=== PATIENT | male | born 1995 | race Caucasian/White ===

== ENCOUNTER 2016-12-12 19:08 | Emergency (ER) | payer SELFPAY ==
[2016-12-12 19:16] VITALS: BP 154/112; PULSE 92; TEMP 98.2; BMI 33.5
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
== END 2016-12-12 19:37 | disposition home or self-care (01) ==
LOC: FER 19:08
DX: S89.92XA Unspecified injury of left lower leg, initial encounter (principal); V09.9XXA Pedestrian injured in unspecified transport accident, initial encounter; Y93.89 Activity, other specified; Y92.9 Unspecified place or not applicable
CPT/HCPCS: 99281-25

== ENCOUNTER 2017-02-12 11:10 | Emergency (ER) | payer SELFPAY ==
[2017-02-12 11:32] VITALS: BP 151/88; PULSE 118; TEMP 98.8; BMI 32.5
[2017-02-12] MEDS ORDERED: ALBUTEROL SO4 2.5/IPRATROPIUM 0.5 INH SOL 3 ML VIAL.NEB. NEB ONE ×2 (11:50→11:56)
[2017-02-12] MEDS ORDERED: TOBRAMYCIN 0.3% OPHTH SOLN 5 ML BOTTLE OD ONE (11:50)
[2017-02-12] MEDS ORDERED: TOBRAMYCIN 0.3% OPHTH SOLN 5 ML BOTTLE ONE (11:56)
--- NOTE | 2017-02-12 12:13 | PDOC ---
History of Present Illness - General Chief Complaint: Cold Symptoms Stated Complaint: FATIGUE Time Seen by Provider: 02/12/17 11:45 History Source: Patient Exam Limitations: No Limitations - History of Present Illness Initial Comments: 02/12/17 patient came to emergency department for evaluation of progressive cough, nonproductive. 2 days. Runny nose of clear drainage, and general malaise. 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 Also states woke up this morning with redness to his right eye with some yellowish drainage which now has moved to his left eye. No visual changes, trauma. Used [id number] medications including NyQuil with some resolved. Severity: reports: mild Associated Symptoms: reports: cough, fever/chills Past History - Travel Traveled outside of the country in the last 30 days: No Close contact w/someone who was outside of country & ill: No - Past Medical History Allergies/Adverse Reactions: Allergies Allergy/AdvReac Type Severity Reaction Status Date / Time No Known Allergies Allergy Verified 02/12/17 11:32 Home Medications: Ambulatory Orders Tobramycin 0.3% Ophth Soln [Tobrex Ophthalmic Solution -] 2 drop OS QID #1 drops 02/12/17 HTN: Yes - Suicide/Smoking/Psychosocial Hx Smoking History: Never smoked Have you smoked in the past 12 months: No Information on smoking cessation initiated: No Hx Alcohol Use: Yes Drug/Substance Use Hx: No Substance Use Type: Alcohol Review of Systems - Review of Systems Able to Perform ROS?: Yes Is the patient limited Ivorian proficient: Yes Constitutional: Yes: Symptoms Reported, See HPI, Loss of Appetite, Malaise. No : Fever HEENTM: Yes: Symptoms Reported Respiratory: Yes: Symptoms reported, See HPI, Cough. No: Wheezing Musculoskeletal: Yes: Symptoms Reported All Other Systems: Reviewed and Negative *Physical Exam - Vital Signs Last Vital Signs Temp Pulse Resp BP Pulse Ox 98.8 F 118 H 20 151/88 99 02/12/17 11:25 02/12/17 11:25 02/12/17 11:25 02/12/17 11:25 02/12/17 11:25 - Physical Exam General Appearance: Yes: Nourished, Appropriately Dressed, Apparent Distress, Mild Distress HEENT: positive: DALE, Normal ENT Inspection, TMs Normal, Pharynx Normal, Muffled/Hoarse voice, Nasal Congestion, Rhinorrhea Neck: positive: Supple. negative: Lymphadenopathy (R), Lymphadenopathy (L) Respiratory/Chest: positive: Lungs Clear, Wheezing (mild tightness ) Cardiovascular: positive: Regular Rate Gastrointestinal/Abdominal: positive: Soft. negative: Tender Extremity: positive: Normal Capillary Refill, Normal Inspection Integumentary: positive: Normal Color, Dry Neurologic: positive: ophthalmic lens inspector II-XII NML intact, Fully Oriented, Alert, Normal Mood/ Affect, Normal Response, Motor Strength /5 Progress Note - Progress Note Progress Note: Conjunctivitis, will treat with tobramycin drops, and URI probable viral in nature *DC/Admit/Observation/Transfer Diagnosis at time of Disposition: URI with cough and congestion Conjunctivitis Qualifiers: Conjunctivitis type: acute Acute conjunctivitis type: unspecified Laterality: unspecified laterality Qualified Code(s): H10.30 - Unspecified acute conjunctivitis, unspecified eye - Discharge Dispostion Disposition: HOME Condition at time of disposition: Stable Admit: No - Prescriptions Prescriptions: Tobramycin 0.3% Ophth Soln [Tobrex Ophthalmic Solution -] 2 drop OS QID #1 drops - Patient Instructions Printed Discharge Instructions: DI for Common Cold Additional Instructions: Rest, drink lots of fluids: Teas, water, soups, Pedialyte Saltwater gargles Steamy showers/seem to face break up mucus Avoid contact with others until fevers and cough resolved Lots of handwashing and good hygiene Continue [id number] medications for symptomatic relief Tylenol or Motrin for fever and pain Followup with private physician in one to 2 days as needed Return to emergency department for worsened symptoms, fevers, dehydration Rest, avoid rubbing eyes Wash hands frequently as this is very contagious Wash hands, use eye drops as directed, wash hands after use Tobramycin eyedrops, 2 drops to affected eyes 4 times a day for 5 days Do not share eyedrops with other person to may become infected as this will infect them Avoid contact with others until redness and discharge is gone from eyes. Followup with ophthalmology or private physician as needed - Post Discharge Activity Forms/Work/School Notes: Back to Work
== END 2017-02-12 12:52 | disposition home or self-care (01) ==
LOC: JERFT 11:10
PROC: 3E0F7GC Introduction of Other Therapeutic Substance into Respiratory Tract, Via Natural or Artificial Opening (ICD-10-PCS; principal; 2017-02-12)
DX: J06.9 Acute upper respiratory infection, unspecified (principal); R05 Cough; R09.89 Other specified symptoms and signs involving the circulatory and respiratory systems
CPT/HCPCS: 99281-25

== ENCOUNTER 2022-12-04 09:03 | Observation (INO) | payer OTHER ==
[2022-12-04 09:09] VITALS: BMI 32.5
[2022-12-04 10:41] LABS: BASO % 0.8 % (0-2.0); EOS % 2.9 % (0-4.5); HEMATOCRIT 45.5 % (35.4-49); HEMOGLOBIN 15.3 GM/dL (11.7-16.9); LYMPH % 22.9 % (8-40); MCH 28.2 pg (25.7-33.7); MCHC 33.5 g/dl (32.0-35.9); MEAN CELL VOLUME 84.1 fl (80-96); MONO % 5.2 % (3.8-10.2); NEUT % 68.2 % (42.8-82.8); PLATELET COUNT 251 10^3/uL (134-434); RBC 5.41 M/mm3 (4.00-5.60); RDW 13.4 % (11.9-15.9); WHITE BLOOD COUNT 7.5 K/mm3 (4.0-10.0)
[2022-12-04 11:04] LABS: POTASSIUM 4.1 mmol/L (3.5-5.1)
[2022-12-04 11:06] LABS: CALCIUM 9.2 mg/dL (8.5-10.1)
[2022-12-04 11:07] LABS: ALBUMIN 4.1 g/dl (3.4-5.0); BLOOD UREA NITROGEN 18.7 mg/dL (7-18)
[2022-12-04 11:10] LABS: CREATININE 1.1 mg/dL (0.55-1.3)
[2022-12-04 11:11] LABS: BILIRUBIN,TOTAL 0.6 mg/dL (0.2-1); TOT PROT 7.6 g/dl (6.4-8.2)
[2022-12-04] MEDS ORDERED: LABETALOL HCL 5 MG/1 ML (100MG/20 ML VIAL) IVPUSH ONE (11:38)
[2022-12-04] MEDS ORDERED: ASPIRIN 81 MG CHEWABLE TABLETS PO ONE (11:44)
[2022-12-04] MEDS ORDERED: ASPIRIN 81 MG CHEWABLE TABLETS ONE (11:48)
[2022-12-04] MEDS ORDERED: LABETALOL HCL 20 MG/4 ML VIAL ONE (11:49)
[2022-12-04] MEDS ORDERED: LABETALOL HCL 200 MG TABLET (FP) PO ONE (12:56)
[2022-12-04 15:52] LABS: EPI CELLS 0 /uL (0-25.1); HYALINE CASTS 0 /uL (0-3.1); PH,URINE 7.5 (5.0-8.0); URINE APPEARANCE CLEAR; URINE BACTERIA 0 /uL (0-1359); URINE BILIRUBIN NEGATIVE (NEGATIVE); URINE COLOR YELLOW; URINE GLUCOSE (UA) NEGATIVE (NEGATIVE); URINE KETONE NEGATIVE (NEGATIVE); URINE LEUK ESTERASE NEGATIVE (NEGATIVE); URINE NITRITE NEGATIVE (NEGATIVE); URINE PROTEIN 1+ (NEGATIVE); URINE RBC 12 /uL (0-23.9); URINE WBC 1 /uL (0-25.8)
[2022-12-04 15:57] LABS: CHOLESTEROL 180 mg/dL (50-200)
[2022-12-04 15:58] LABS: PHENCYCLIDINE,URINE NEGATIVE (NEGATIVE); URINE AMPHETAMINES NEGATIVE (NEGATIVE); URINE BENZODIAZEPINES NEGATIVE (NEGATIVE)
[2022-12-04 15:59] LABS: LDL CHOLESTEROL (ONLY SJRH) 113 mg/dL (5-100); OPIATES, URI NEGATIVE (NEGATIVE); URINE BARBITURATES NEGATIVE (NEGATIVE)
[2022-12-04 16:00] LABS: HDL CHOLESTEROL 63 mg/dL (40-60)
[2022-12-04 16:05] LABS: COCAINE, UR NEGATIVE (NEGATIVE); METHADONE, UR NEGATIVE (NEGATIVE)
[2022-12-04] MEDS ORDERED: amLODIPine BESYLATE 5 MG TABLET (FP) PO SCH (18:00)
[2022-12-04] MEDS ORDERED: amLODIPine BESYLATE 5 MG TABLET (FP) ONE (18:08)
[2022-12-04] MEDS ORDERED: LABETALOL HCL 20 MG/4 ML VIAL IVPUSH PRN (18:21)
[2022-12-05 07:40] LABS: BASO % 0.7 % (0-2.0); EOS % 3.7 % (0-4.5); HEMATOCRIT 46.1 % (35.4-49); HEMOGLOBIN 15.2 GM/dL (11.7-16.9); LYMPH % 32.7 % (8-40); MCH 27.8 pg (25.7-33.7); MEAN CELL VOLUME 84.3 fl (80-96); MEAN PLT VOLUME 9.1 fl (7.5-11.1); MONO % 7.4 % (3.8-10.2); NEUT % 55.5 % (42.8-82.8); PLATELET COUNT 249 10^3/uL (134-434); RBC 5.47 M/mm3 (4.00-5.60); RDW 13.4 % (11.9-15.9); WHITE BLOOD COUNT 6.8 K/mm3 (4.0-10.0)
[2022-12-05 07:51] LABS: POTASSIUM 3.5 mmol/L (3.5-5.1)
[2022-12-05 07:53] LABS: ALBUMIN 3.7 g/dl (3.4-5.0); CALCIUM 8.7 mg/dL (8.5-10.1); MAGNESIUM 2.4 mg/dL (1.8-2.4)
[2022-12-05 07:54] LABS: BLOOD UREA NITROGEN 15.1 mg/dL (7-18)
[2022-12-05 07:56] LABS: CREATININE 0.9 mg/dL (0.55-1.3); PHOSPHOROUS 3.5 mg/dL (2.5-4.9)
[2022-12-05 07:58] LABS: BILIRUBIN,TOTAL 0.9 mg/dL (0.2-1); TOT PROT 7.1 g/dl (6.4-8.2)
[2022-12-05] MEDS ORDERED: LABETALOL HCL 200 MG TABLET (FP) PO SCH (10:00)
[2022-12-05] MEDS ORDERED: LABETALOL HCL 100 MG TABLET (FP) PO SCH (10:00)
[2022-12-05] MEDS ORDERED: amLODIPine BESYLATE 5 MG TABLET (FP) PO SCH (11:00)
[2022-12-05] MEDS ORDERED: LABETALOL HCL 200 MG TABLET (FP) PO ONE (12:15)
[2022-12-05 15:16] VITALS: BP 150/99; PULSE 78; RESP 19; TEMP 98.6
== END 2022-12-05 15:27 | disposition home or self-care (01) ==
LOC: JER 09:03 → EDLOC 13:20 → JERBED 12-05 07:54 → UNDOADMOB 12-05 07:54 → INTOOBSV 12-05 07:54
PROVIDERS: ADMIT Internal Medicine; ATTEND Internal Medicine
PROC: 3E033GC Introduction of Other Therapeutic Substance into Peripheral Vein, Percutaneous Approach (ICD-10-PCS; principal; 2022-12-04)
DX: I16.0 Hypertensive urgency (principal); R07.89 Other chest pain; R77.8 Other specified abnormalities of plasma proteins
CPT/HCPCS: 36415; 71046-TC-FY; 80053; 80061; 80307; 81003; 82550; 83036; 83735; 84100; 84443; 84484; 85025; 93005; 93010; 93306-TC; 96374; 99285-25